=== PATIENT | female | born 1960 | race Caucasian/White ===

== ENCOUNTER 2017-12-29 06:22 | Day surgery (SDC) | payer BC ==
[2017-12-24 14:26] VITALS: BMI 28.1
[2017-12-29] MEDS ORDERED: SODIUM CHLORIDE 0.9% 1,000 ML IV ONE (06:43)
[2017-12-29 06:54] VITALS: RESP 16; TEMP 98.2
[2017-12-29] MEDS ORDERED: fentaNYL (PF) 50 MCG/ML 2 ML AMP ONE (07:26)
[2017-12-29] MEDS ORDERED: MIDAZOLAM 2 MG/2 ML VIAL ONE (07:26)
[2017-12-29] MEDS ORDERED: BENZOCAINE SPRAY 1 CAN MUCOUS MEM ONE ×2 (07:40→07:52)
[2017-12-29] MEDS: fentaNYL (PF) 50 MCG/ML 2 ML AMP IV ONE ×2 (07:54→07:57)
[2017-12-29] MEDS ORDERED: MIDAZOLAM 2 MG/2 ML VIAL IV ONE (07:54)
[2017-12-29] MEDS: MIDAZOLAM 2 MG/2 ML VIAL IV ONE ×2 (07:57→08:00)
[2017-12-29 08:54] VITALS: PULSE 66
--- NOTE | 2017-12-29 09:07 | ECHOT ---
TRANSESOPHAGEAL ECHOCARDIOGRAM DATE OF SERVICE: 12/29/2017 PERFORMING PHYSICIAN: Sarmad Johns MD, Placement Manager. PROCEDURE PERFORMED: Transesophageal echocardiogram. INDICATION: This is a pleasant 57-year-old female patient who suffered from an episode of TIA recently. The transesophageal echocardiogram is to rule out any cardiac source of embolization. COMPLICATION: None. LEVEL OF SEDATION: Moderate with a sedation length of about 15 minutes. PROCEDURE DESCRIPTION: After obtaining an informed consent, explaining the procedure, benefits, risks, complications and alternatives, the patient was brought to the transesophageal echocardiogram suite. A pulse oximetry and heart rate monitors were attached to the patient prior to the procedure. The patient's throat was sprayed using lidocaine locally. Following that, the patient was turned into left lateral position. A bite guard was placed and the patient was then sedated with the above doses of Versed and fentanyl in divided doses. Following that, the transesophageal echocardiogram probe was advanced through the bite guard into the mid esophagus where 2-D echocardiogram images as well as color Doppler images of various cardiac structures were obtained. We evaluated the interatrial septum using 2-D echocardiogram, color Doppler, and contrast study. The procedure was completed. There were no complications. FINDINGS: The left ventricular dimension and systolic function appeared to be within normal limits. The ejection fraction appeared to be with in the range of 60% with mild concentric LVH. The right ventricle is of normal size and function. The left atrium seems to be mildly dilated as well as the right atrium. The left atrial appendage appeared to be free from any thrombus. The interatrial septum appeared to be intact without any evidence of [id number]-tl-baso shunt seen. The aortic valve appeared to be trileaflet valve without stenosis or regurgitation. The mitral valve seems to be mildly thickened with evidence of mitral valve prolapse. The tricuspid valve and pulmonic valve appear to be within normal limits. CONCLUSION: 1. There is no evidence of cardiac source of embolization seen. 2. Normal left atrial appendage without any evidence of thrombus. 3. Intact interatrial septum without any evidence of shunt. 4. Normal left ventricular dimension and systolic function. 5. Mild biatrial enlargement. 6. Tri-leaflet aortic valve without stenosis or regurgitation. 7. Mild mitral valve prolapse with mild mitral regurgitation only. 8. Normal tricuspid valve and pulmonic valve. 9. Normal aortic root dimension. 10.No evidence of pericardial effusion. MMODL / IJN: [id number] /
[2017-12-29 09:34] VITALS: BP 116/72
== END 2017-12-29 09:34 | disposition home or self-care (01) ==
LOC: CATHCVL 06:22
PROVIDERS: ATTEND Internal Medicine Interventional Cardiology
DX: I34.1 Nonrheumatic mitral (valve) prolapse (principal); I34.0 Nonrheumatic mitral (valve) insufficiency; I51.7 Cardiomegaly; G45.0 Vertebro-basilar artery syndrome; Z86.73 Personal history of transient ischemic attack (TIA), and cerebral infarction without residual deficits; Z82.49 Family history of ischemic heart disease and other diseases of the circulatory system; E78.5 Hyperlipidemia, unspecified; Z79.82 Long term (current) use of aspirin; Z79.51 Long term (current) use of inhaled steroids; Z79.899 Other long term (current) drug therapy; Z88.6 Allergy status to analgesic agent; Z88.5 Allergy status to narcotic agent
CPT/HCPCS: 93312; 93320; 93325; J2250; J3010

== ENCOUNTER → 2018-11-29 | Outpatient (CLI) | payer OTHER ==
--- NOTE | 2018-11-29 16:08 | MR ---
EXAMINATION TYPE: MR knee RT wo con DATE OF EXAM: 11/29/2018 COMPARISON: None HISTORY: 58-year-old female internal derangement of right knee, right knee pain x 4 years TECHNIQUE: Multiplanar, multisequence imaging of the right knee is performed without IV contrast. FINDINGS: ACL, PCL, MCL, and LCL complex appear intact. Some fluid extending along the popliteus myotendinous j unction likely communicating with the knee joint. There is some degenerative signal near the anterior root of the lateral meniscus. An adjacent 8 mm pa rameniscal cyst suggesting underlying small tear. Moderate irregular cartilage loss along the mid morteza ghtbearing to mid peripheral lateral compartment with marginal spurring. There is degenerative signal throughout the medial meniscus without discrete meniscal tear. There is severe irregular cartilage loss especially along the anterior aspect of the medial compartment with b one-on-bone articulation, subchondral marrow signal changes, and marginal spurring. Mild extrusion of the medial meniscal body. Focal 2 mm chondral defect centrally along the lateral patellar facet with moderate irregular cartila ge loss along the medial trochlear facet and medial trochlea. There is a 4.8 x 1.2 x 1.1 cm loose body in the suprapatellar pouch with small knee joint effusion. T race early Barbosa's cyst formation. 1.6 cm ganglion at the origin of the lateral head gastrocnemius. Extensor mechanism is intact with p rominent intermediate signal of the proximal patellar tendon. Normal popliteal artery anatomy. Mild diffuse muscular atrophy. No suspicious bone marrow replacement . IMPRESSION: 1. Moderate to severe degenerative change localized to the anterior aspect of the medial compartment with full-thickness cartilage loss here. Degenerative signal throughout the medial meniscus without d iscrete medial meniscal tear. 2. Moderate focal cartilage irregularity along the mid weightbearing and mid peripheral aspect of the lateral compartment. An 8 mm parameniscal cyst anteriorly suggests a small tear near the anterior ro ot of the lateral meniscus. 3. Additional mild overall patellofemoral compartmental osteoarthrosis. 4. Small knee joint effusion with a 5 mm loose body in the suprapatellar pouch. 5. No cruciate/collateral ligament tear.
== END | disposition home or self-care (01) ==
LOC: RADMRIMAIN 09:37
PROVIDERS: ATTEND Family Medicine
DX: M17.11 Unilateral primary osteoarthritis, right knee (principal); M23.041 Cystic meniscus, anterior horn of lateral meniscus, right knee; M23.41 Loose body in knee, right knee

== ENCOUNTER → 2018-12-22 | Outpatient (CLI) | payer OTHER ==
--- NOTE | 2018-12-22 09:35 | US ---
EXAMINATION TYPE: US kidneys/renal and bladder DATE OF EXAM: 12/22/2018 COMPARISON: NONE CLINICAL HISTORY: M54.5 Low Back Pain. abnormal labs EXAM MEASUREMENTS: Right Kidney: 8.9 x 3.9 x 4.5 cm Left Kidney: 9.3 x 3.9 x 4.5 cm Right Kidney: No hydronephrosis or masses seen, cortical thinning Left Kidney: No hydronephrosis or masses seen, cortical thinning Bladder: distended, wnl Bilateral Jets seen There is no evidence for hydronephrosis at this point in time. No nephrolithiasis is seen. No hilary s are identified. The urinary bladder is anechoic. Bilateral ureteral jets are seen. IMPRESSION: Cortical thinning otherwise unremarkable study.
== END | disposition home or self-care (01) ==
LOC: RADUSWWP 09:00
PROVIDERS: ATTEND Family Medicine
DX: N28.89 Other specified disorders of kidney and ureter (principal); M54.5 Low back pain
CPT/HCPCS: 76770

== ENCOUNTER 2019-01-01 16:19 | Emergency (ER) | payer OTHER ==
[2019-01-01] MEDS ORDERED: SODIUM CHLORIDE 0.9% 1,000 ML IV STA (16:39)
--- NOTE | 2019-01-01 16:52 | ED ---
Abdominal Pain HPI - General Chief Complaint: Abdominal Pain Stated Complaint: chest & abdominal pain Time Seen by Provider: 01/01/19 16:39 Source: patient, RN notes reviewed, old records reviewed Mode of arrival: ambulatory Limitations: no limitations - History of Present Illness Initial Comments: This is a 4-year-old female the ER for evaluation. Patient resents today with evaluation of the epigastric chest pain abdominal pain that felt sharp and s hooting that happened 4 times prior to arrival. Patient is no medical history has history of stroke, no energy, no high blood pressure across to diabetes, no modifying factors for symptoms. Patient currently symptom back. No recent travel history no sick contacts. No recent waking or weight loss. No prior history of similar complaints. No surgical history MD Complaint: abdominal pain, other (Substernal epigastric pain) -: minutes(s) Location: periumbilical, epigastric Radiation: epigastric Migration to: no migration Severity: mild Severity scale (1-10): 3 Quality: aching Consistency: intermittent, now resolved Improves With: nothing Worsens With: nothing Associated Symptoms: denies other symptoms - Related Data Home Medications Medication Instructions Recorded Confirmed Levothyroxine Sodium [Synthroid] 75 mg PO DAILY 12/23/15 01/01/19 Solifenacin Succinate [Vesicare] 10 mg PO DAILY 12/23/15 01/01/19 Aspirin EC [Ecotrin Low Dose] 81 mg PO BID 12/24/17 01/01/19 Pravastatin Sodium [Pravachol] 40 mg PO HS 01/01/19 01/01/19 Allergies Allergy/AdvReac Type Severity Reaction Status Date / Time codeine Allergy Hallucinati Verified 01/01/19 16:53 ons propoxyphene napsylate Allergy Itching Verified 01/01/19 16:53 [From Darvocet-N] Review of Systems ROS Statement: Those systems with pertinent positive or pertinent negative responses have been documented in the HPI. ROS Other: All systems not noted in ROS Statement are negative. Past Medical History Past Medical History: Asthma, CVA/TIA, GERD/Reflux, Hyperlipidemia, Thyroid Disorder Additional Past Medical History / Comment(s): OVERACTIVE BLADDER. 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 COLONOSCOPY Past Anesthesia/Blood Transfusion Reactions: No Reported Reaction Past Psychological History: No Psychological Hx Reported Smoking Status: Never smoker Past Alcohol Use History: None Reported Past Drug Use History: None Reported - Past Family History Mother Family Medical History: Congestive Heart Failure (CHF) Father Additional Family Medical History / Comment(s): [employer] General Exam Limitations: no limitations General appearance: alert, in no apparent distress Head exam: Present: atraumatic, normocephalic, normal inspection Eye exam: Present: normal appearance, PERRL, EOMI. Absent: scleral icterus, co njunctival injection, periorbital swelling ENT exam: Present: normal exam, mucous membranes moist Neck exam: Present: normal inspection. Absent: tenderness, meningismus, lymphadenopathy Respiratory exam: Present: normal lung sounds bilaterally. Absent: respiratory distress, wheezes, rales, rhonchi, stridor Cardiovascular Exam: Present: regular rate, normal rhythm, normal heart sounds. Absent: systolic murmur, diastolic murmur, rubs, gallop, clicks GI/Abdominal exam: Present: soft, normal bowel sounds. Absent: distended, tenderness, guarding, rebound, rigid Extremities exam: Present: normal inspection, full ROM, normal capillary refill. Absent: tenderness, pedal edema, joint swelling, calf tenderness Back exam: Present: normal inspection Neurological exam: Present: alert, oriented X3, CN II-XII intact Psychiatric exam: Present: normal affect, normal mood Skin exam: Present: warm, dry, intact, normal color. Absent: rash Course Vital Signs 01/01/19 01/01/19 16:22 18:22 Temperature 98.1 F Pulse Rate 91 96 Respiratory 16 16 Rate Blood Pressure 148/60 123/83 O2 Sat by Pulse 99 97 Oximetry - Reevaluation(s) Reevaluation #1: 01/01/19 16:52 Medical record reviewed Reevaluation #2: 01/01/19 19:29 Symptoms remain resolved, patient has no recurrent symptoms Reevaluation #3: 01/01/19 19:29 Patient does admit to finding of urinary tract infection as of late Medical Decision Making - Medical Decision Making 58 female the ER for evaluation, patient's presented today for evaluation regards to nonspecific abdominal pain. Shock-type pain to her sternum. No prior history of similar complaint happened 3 times prior to arrival. No specific medical history. No fevers. No current chest pain or abdominal pain. CT labwork are normal, UTI we'll treat UTI discharge home - Lab Data Result diagrams: 01/01/19 17:00 01/01/19 17:00 Lab Results 01/01/19 01/01/19 01/01/19 Range/Units 17:00 17:00 17:00 WBC 7.6 (3.8-10.6) k/uL RBC 5.35 (3.80-5.40) m/uL Hgb 14.7 (11.4-16.0) gm/dL Hct 44.0 (34.0-46.0) % MCV 82.3 (80.0-100.0) fL MCH 27.5 (25.0-35.0) pg MCHC 33.4 (31.0-37.0) g/dL RDW 13.6 (11.5-15.5) % Plt Count 252 (150-450) k/uL Neutrophils % 75 % Lymphocytes % 17 % Monocytes % 5 % Eosinophils % 1 % Basophils % 1 % Neutrophils # 5.7 (1.3-7.7) k/uL Lymphocytes # 1.3 (1.0-4.8) k/uL Monocytes # 0.4 (0-1.0) k/uL Eosinophils # 0.1 (0-0.7) k/uL Basophils # 0.0 (0-0.2) k/uL Sodium 142 (137-145) mmol/L Potassium 4.0 (3.5-5.1) mmol/L Chloride 107 (98-107) mmol/L Carbon Dioxide 20 L (22-30) mmol/L Anion Gap 15 mmol/L BUN 7 (7-17) mg/dL Creatinine 0.78 (0.52-1.04) mg/dL Est GFR (CKD-EPI)AfAm >90 (>60 ml/min/1.73 sqM) Est GFR (CKD-EPI)NonAf 83 (>60 ml/min/1.73 sqM) Glucose 125 H (74-99) mg/dL Plasma Lactic Acid Linus 3.2 H* (0.7-2.0) mmol/L Calcium 10.0 (8.4-10.2) mg/dL Total Bilirubin 0.3 (0.2-1.3) mg/dL AST 25 (14-36) U/L ALT 25 (9-52) U/L Alkaline Phosphatase 91 (38-126) U/L Creatine Kinase 48 (30-135) U/L Troponin I (0.000-0.034) ng/mL Total Protein 7.6 (6.3-8.2) g/dL Albumin 4.8 (3.5-5.0) g/dL Amylase 39 (30-110) U/L Lipase 42 (23-300) U/L Urine Color Urine Appearance (Clear) Urine pH (5.0-8.0) Ur Specific [place] (1.001-1.035) Urine Protein (Negative) Urine Glucose (UA) (Negative) Urine Ketones (Negative) Urine Blood (Negative) Urine Nitrite (Negative) Urine Bilirubin (Negative) Urine Urobilinogen (<2.0) mg/dL Ur Leukocyte Esterase (Negative) Urine RBC (0-5) /hpf Urine WBC (0-5) /hpf Ur Squamous Epith Cells (0-4) /hpf Urine Mucus (None) /hpf 01/01/19 01/01/19 Range/Units 17:00 17:05 WBC (3.8-10.6) k/uL RBC (3.80-5.40) m/uL Hgb (11.4-16.0) gm/dL Hct (34.0-46.0) % MCV (80.0-100.0) fL MCH (25.0-35.0) pg MCHC (31.0-37.0) g/dL RDW (11.5-15.5) % Plt Count (150-450) k/uL Neutrophils % % Lymphocytes % % Monocytes % % Eosinophils % % Basophils % % Neutrophils # (1.3-7.7) k/uL Lymphocytes # (1.0-4.8) k/uL Monocytes # (0-1.0) k/uL Eosinophils # (0-0.7) k/uL Basophils # (0-0.2) k/uL Sodium (137-145) mmol/L Potassium (3.5-5.1) mmol/L Chloride (98-107) mmol/L Carbon Dioxide (22-30) mmol/L Anion Gap mmol/L BUN (7-17) mg/dL Creatinine (0.52-1.04) mg/dL Est GFR (CKD-EPI)AfAm (>60 ml/min/1.73 sqM) Est GFR (CKD-EPI)NonAf (>60 ml/min/1.73 sqM) Glucose (74-99) mg/dL Plasma Lactic Acid Linus (0.7-2.0) mmol/L Calcium (8.4-10.2) mg/dL Total Bilirubin (0.2-1.3) mg/dL AST (14-36) U/L ALT (9-52) U/L Alkaline Phosphatase (38-126) U/L Creatine Kinase (30-135) U/L Troponin I <0.012 (0.000-0.034) ng/mL Total Protein (6.3-8.2) g/dL Albumin (3.5-5.0) g/dL Amylase (30-110) U/L Lipase (23-300) U/L Urine Color Yellow Urine Appearance Clear (Clear) Urine pH 6.0 (5.0-8.0) Ur Specific [place] 1.006 (1.001-1.035) Urine Protein Negative (Negative) Urine Glucose (UA) Negative (Negative) Urine Ketones Negative (Negative) Urine Blood Negative (Negative) Urine Nitrite Negative (Negative) Urine Bilirubin Negative (Negative) Urine Urobilinogen <2.0 (<2.0) mg/dL Ur Leukocyte Esterase Large H (Negative) Urine RBC 1 (0-5) /hpf Urine WBC 33 H (0-5) /hpf Ur Squamous Epith Cells 1 (0-4) /hpf Urine Mucus Rare H (None) /hpf - Radiology Data Radiology results: report reviewed (CT brain, CT chest abdomen and pelvis negative for acute disease), image reviewed Disposition Clinical Impression: Abdominal pain, UTI (urinary tract infection), Atypical chest pain Disposition: HOME SELF-CARE Condition: Good Instructions (If sedation given, give patient instructions): Urinary Tract Infection in Women (ED) Is patient prescribed a controlled substance at d/c from ED?: No Referrals: Gabby Schreiber MD [Primary Care Provider] - 1-2 days
--- NOTE | 2019-01-01 17:41 | CT ---
EXAMINATION TYPE: CT brain wo con DATE OF EXAM: 01/01/2019 COMPARISON: None HISTORY: Hypertension, Abdominal and chest pain CT DLP: 1074.4 mGycm Automated exposure control for dose reduction was used. FINDINGS: There is an old lacunar infarct that is CSF attenuated involving the internal capsule and thalamus. N o acute intracranial hemorrhage, midline shift or mass effect is seen. Pool-white matter interface is maintained. No suspicious extra-axial fluid collection. No hydrocephalus. Calvarium is intact. Paran qamar sinuses and mastoid air cells are well aerated. Orbits are grossly symmetric. IMPRESSION: NO ACUTE INTRACRANIAL PROCESS. 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
--- NOTE | 2019-01-01 17:47 | CT ---
EXAMINATION TYPE: CT angio chest DATE OF EXAM: 01/01/2019 COMPARISON: NONE HISTORY: Hypertension, Abdominal and chest pain CT DLP: 327.5 mGycm. Automated Exposure Control for Dose Reduction was Utilized. CONTRAST: CTA scan of the thorax is performed with IV Contrast, patient injected with 100 mL of Isovue 370, pul monary embolism protocol. MIP Images are created on CT scanner and reviewed. FINDINGS: LUNGS: There is no focal consolidation, pleural effusion or pneumothorax. There are bilateral pulmona ry nodules. Within the left lower lobe on series 406 image 91 there is a 1.0 cm noncalcified solid pu lmonary nodule. Along the right minor fissure there are 3 solid pulmonary nodules measuring 9 mm, 3 m m and 6 mm. These could represent intrafissural lymph nodes. Strand-like bibasilar atelectasis is pre sent The tracheobronchial tree is patent. MEDIASTINUM: There is satisfactory enhancement of the pulmonary artery and its branches, there is no CT evidence for pulmonary embolism. There are no greater than 1 cm hilar or mediastinal lymph nodes. Trace pericardial effusion is present. No cardiomegaly. No evidence of thoracic aortic aneurysm or d issection is seen. No significant coronary artery calcifications. OTHER: Left lobe of the thyroid is either surgically absent or significantly atrophic. Degenerative c hanges of the spine are present. No acute osseous pathology is seen visualized portions of the abdome n are discussed on the CT abdomen and pelvis dictation of the same date. IMPRESSION: 1. No evidence of pulmonary embolus. 2. Bilateral pulmonary nodules measuring up to 1 cm on the left. For further workup of a 1 cm pulmona ry nodule PET scan could be considered. 3. Minimal bibasilar subsegmental atelectasis without focal consolidation to suggest pneumonia.
[2019-01-01 17:54] LABS: Basophils % (A) 1 %; Eosinophils # (A) 0.1 k/uL (0-0.7); Eosinophils % (A) 1 %; HGB 14.7 gm/dL (11.4-16.0); Lymphocytes # (A) 1.3 k/uL (1.0-4.8); Lymphocytes % (A) 17 %; MCH 27.5 pg (25.0-35.0); MCHC 33.4 g/dL (31.0-37.0); MCV 82.3 fL (80.0-100.0); Mean Platelet Volume 7.5; Monocytes # (A) 0.4 k/uL (0-1.0); Monocytes % (A) 5 %; Neutrophils # (A) 5.7 k/uL (1.3-7.7); Neutrophils % (A) 75 %; Platelet Count 252 k/uL (150-450); RBC 5.35 m/uL (3.80-5.40); RDW 13.6 % (11.5-15.5); WBC 7.6 k/uL (3.8-10.6)
--- NOTE | 2019-01-01 17:59 | CT ---
EXAMINATION TYPE: CT abdomen pelvis w con DATE OF EXAM: 01/01/2019 HISTORY: Hypertension, Abdominal and chest pain CT DLP: 448.2mGycm Automated Exposure Control for Dose Reduction was Utilized. CONTRAST: CT scan of the abdomen and pelvis is performed with IV Contrast, patient injected with 100 mL of Isov ue 370. COMPARISON: CT chest of the same date. FINDINGS: LUNG BASES: Minimal bibasilar subsegmental atelectasis. The visualized portions of the lungs are desc ribed in the CT chest of the same date LIVER/GB: There is very slight decreased attenuation of the hepatic parenchyma in comparison to the s plenic parenchyma however this does not yet meet criteria for hepatic steatosis. Gallbladder surgical ly absent. PANCREAS: No significant abnormality is seen. SPLEEN: No significant abnormality is seen. There is a small splenule adjacent to the sle[place] spleen ADRENALS: No significant abnormality is seen. KIDNEYS: Too small to accurately characterize bilateral hypoattenuated renal lesions are seen. No hyd ronephrosis nor nephrolithiasis. BOWEL: The appendix is air-filled and within normal limits. Very few sigmoid diverticula are seen wit hout pericolonic fat stranding. No dilated large or small bowel is present. UTERUS/ADNEXA: Calcifications are seen in the left adnexa that could relate to a teratoma or more lik magui phleboliths within the distal gonadal vein. Uterus is suboptimally evaluated on CT. LYMPH NODES: No greater than 1cm abdominal or pelvic lymph nodes are appreciated. OSSEOUS STRUCTURES: Moderate multilevel degenerative changes of the spine are seen mild degenerative changes of the femoral acetabular joints are present. OTHER: Moderate atherosclerosis is seen of the abdominal aorta and its branches. There is a 4 mm fat filled umbilical hernia. IMPRESSION: No significant acute finding is seen to account for patient's abdominal pain. Sigmoid div erticulosis without evidence of acute diverticulitis is present.
[2019-01-01 18:05] LABS: ALT 25 U/L (9-52); AST 25 U/L (14-36); Albumin 4.8 g/dL (3.5-5.0); Alkaline Phosphatase 91 U/L (38-126); Amylase 39 U/L (30-110); Anion Gap 15 mmol/L; Blood Urea Nitrogen 7 mg/dL (7-17); Carbon Dioxide 20 mmol/L (22-30); Chloride 107 mmol/L (98-107); Creatine Kinase 48 U/L (30-135); Glucose 125 mg/dL (74-99); Lipase 42 U/L (23-300); Sodium 142 mmol/L (137-145); Total Bilirubin 0.3 mg/dL (0.2-1.3); Total Protein 7.6 g/dL (6.3-8.2)
[2019-01-01 18:07] LABS: Appearance,Urine Clear (Clear); Bilirubin,Urine Negative (Negative); Blood,Urine Negative (Negative); Color,Urine Yellow; Glucose,Urine (UA) Negative (Negative); Ketones,Urine Negative (Negative); Leukocyte Esterase,Urine Large (Negative); Mucus,Urine Rare /hpf; Nitrite,Urine Negative (Negative); Protein,Urine Negative (Negative); RBC,Urine 1 /hpf (0-5); Specific Gravity,Urine 1.006 (1.001-1.035); Squamous Epithelial Cell,Urine 1 /hpf (0-4); Urobilinogen,Urine <2.0 mg/dL (<2.0); WBC,Urine 33 /hpf (0-5)
[2019-01-01] MEDS ORDERED: CEFTRIAXONE IVPB STA (19:04)
[2019-01-01] MEDS ORDERED: SODIUM CHLORIDE 0.9% IVPB STA (19:04)
[2019-01-01 19:57] VITALS: BP 130/80; PULSE 73; RESP 18; TEMP 97.9
== END 2019-01-01 20:20 | disposition home or self-care (01) ==
LOC: EC 16:19
DX: N39.0 Urinary tract infection, site not specified (principal); R07.89 Other chest pain; R10.13 Epigastric pain; E78.5 Hyperlipidemia, unspecified; E07.9 Disorder of thyroid, unspecified; N32.81 Overactive bladder; Z82.49 Family history of ischemic heart disease and other diseases of the circulatory system; Z88.5 Allergy status to narcotic agent; Z79.82 Long term (current) use of aspirin; Z79.890 Hormone replacement therapy; Z79.899 Other long term (current) drug therapy; Z86.73 Personal history of transient ischemic attack (TIA), and cerebral infarction without residual deficits; Z87.19 Personal history of other diseases of the digestive system; Z90.49 Acquired absence of other specified parts of digestive tract
CPT/HCPCS: 99285; 96365; 96361 ×2; 36415; 93005; 80053; 82150; 82550; 83605; 83690; 84484; 85025; 81001; 87086; 70450; 71275; 74177; J0696; Q9967

== ENCOUNTER → 2019-05-10 | Outpatient (CLI) | payer OTHER ==
--- NOTE | 2019-05-10 13:11 | US ---
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 EXAM MEASUREMENTS: RIGHT: Peak Systolic Velocity (PSV) cm/sec ----- Right CCA: 67.7 ----- Right ICA: 73.4 ----- Right ECA: 65.1 ICA/CCA ratio: 1.1 RIGHT: End Diastole cm/sec ----- Right CCA: 25.0 ----- Right ICA: 34.1 ----- Right ECA: 17.1 LEFT: Peak Systolic Velocity (PSV) cm/sec ----- Left CCA: 70.1 ----- Left ICA: 83.9 ----- Left ECA: 56.7 ICA/CCA ratio: 1.2 LEFT: End Diastole cm/sec ----- Left CCA: 21.2 ----- Left ICA: 35.1 ----- Left ECA: 11.8 VERTEBRALS (direction of flow): Right Vertebral: Antegrade Left Vertebral: Antegrade Rhythm: Normal No elevated velocities, mild plaque. IMPRESSION: Mild degree of grayscale atheromatous plaquing with no sonographically evident hemodynam ically significant stenosis within either visualized carotid arterial system. Criteria for Assigning % of Stenosis / Diameter reduction (Estimation based on the indirect measurements of the internal carotid artery velocities (ICA PSV). 1. Normal (no stenosis)=ICA PSV < 125 cm/s: ratio < 2.0: ICA EDV<40 cm/s. 2. Less than 50% stenosis=ICA PSV < 125 cm/s: ratio < 2.0: ICA EDV<40 cm/s. 3. 50 to 69% stenosis=ICA PSV of 125 to 230 cm/s: ration 2.0 ? 4.0: ICA EDV 40-100 cm/s. 4. Greater than 70% stenosis to near occlusion= ICA PSV > 230 cm/s: ratio > 4.0: ICA EDV > 100 cm/s. 5. Near occlusion= ICA PSV velocities may be low or undetectable: variable ratio and ICA EDV. 6. Total occlusion=unable to detect flow.
== END ==
LOC: RADUSWWP 12:05
PROVIDERS: ATTEND Family Medicine
DX: I65.23 Occlusion and stenosis of bilateral carotid arteries (principal)
CPT/HCPCS: 93880

== ENCOUNTER → 2021-12-24 | Outpatient (CLI) | payer OTHER ==
--- NOTE | 2021-12-25 08:25 | MM ---
Reason for exam: screening (asymptomatic). Last mammogram was performed 6 years and 1 month ago. History: Patient is postmenopausal. Physical Findings: A clinical breast exam by your physician is recommended on an annual basis and results should be correlated with mammographic findings. MG Screening Mammo w CAD Bilateral CC and MLO view(s) were taken. Prior study comparison: December 03, 2015, bilateral MG screening mammo w CAD. August 10, 2013, mammogram, performed at [facility]. There are scattered fibroglandular densities. There is no discrete abnormality. ASSESSMENT: Negative, BI-RAD 1 RECOMMENDATION: Routine screening mammogram of both breasts in 1 year.
== END | disposition home or self-care (01) ==
LOC: RADMAMWWP 07:26
PROVIDERS: ATTEND Family Medicine
DX: Z12.31 Encounter for screening mammogram for malignant neoplasm of breast (principal); Z78.0 Asymptomatic menopausal state
CPT/HCPCS: 77067

== ENCOUNTER → 2022-05-20 | Outpatient (CLI) | payer OTHER ==
--- NOTE | 2022-05-20 08:14 | CT ---
EXAMINATION TYPE: CT chest w con CT DLP: 208.3 mGycm, Automated exposure control for dose reduction was used. DATE OF EXAM: 05/20/2022 7:44 AM COMPARISON: 01/01/2019 CLINICAL INDICATION:Female, 61 years old with history of R91.1 SPN;, Solitary pulmonary nodule TECHNIQUE: Multiple axial images were obtained through the chest. Sagittal and coronal reformats were created for review. Contrast used:70 mL of Isovue 300 with IV Contrast, none. Oral contrast used: none. FINDINGS: LUNGS/ PLEURA: No focal consolidation, pneumothorax or pleural effusion. Scattered pulmonary nodules are identified. Examples include: Right lower lobe pulmonary nodule measuring 5 mm is unchanged from 2019. Left lower lobe pulmonary nodule measuring average 11 mm is unchanged from 2019. There are 3 minor fissure intrafissural lymph nodes on series 3 image 30 and 32. AIRWAY: Patent and unremarkable. HEART: Size within normal limits. Mild coronary artery atherosclerosis MEDIASTINUM: No gross evidence of adenopathy. VASCULATURE: No aortic aneurysm. MUSCULOSKELETAL: No acute osseous abnormalities SOFT TISSUES/LYMPH NODES: Unremarkable. LOWER NECK: No significant findings. UPPER ABDOMEN: The gallbladder is surgically absent. IMPRESSION: Stable left lower lobe average 11 mm and right lower lobe 5 mm pulmonary nodules dating back to 2019.
== END | disposition home or self-care (01) ==
LOC: RADCTMAIN 07:09
PROVIDERS: ATTEND Family Medicine
DX: R91.8 Other nonspecific abnormal finding of lung field (principal)
CPT/HCPCS: 71260; Q9967

== ENCOUNTER 2022-08-31 11:04 | Emergency (ER) | payer OTHER ==
[2022-08-31] MEDS ORDERED: SODIUM CHLORIDE 0.9% 1,000 ML IV ONE (11:28)
--- NOTE | 2022-08-31 11:57 | ED ---
General Adult HPI - General Chief complaint: Arrhythmia/Palpitations Stated complaint: Heart racing Time Seen by Provider: 08/31/22 11:10 Source: patient Mode of arrival: ambulatory Limitations: no limitations - History of Present Illness Initial comments: Patient is a 62-year-old female presenting with chief complaint of "I just don't feel right". Patient states that she "feels like she is in a fog". She has some minor confusion, at bedside states that patient had a stroke 5 years ago and her short-term memory has been severely impaired since then. Patient has had 2 episodes of dizziness. She also states that her fitness watch indicated that her heart rate was reaching up to 120 bpm. She denies any chest pain or shortness of breath. No weakness, numbness, tingling. No abdominal pain, nausea, vomiting. No headache, vision or hearing changes, neck pain or stiffness. - Related Data Home Medications Medication Instructions Recorded Confirmed Levothyroxine Sodium [Synthroid] 75 mg PO DAILY 12/23/15 01/01/19 Solifenacin Succinate [Vesicare] 10 mg PO DAILY 12/23/15 01/01/19 Aspirin EC [Ecotrin Low Dose] 81 mg PO BID 12/24/17 01/01/19 Pravastatin Sodium [Pravachol] 40 mg PO HS 01/01/19 01/01/19 Previous Rx's Medication Instructions Recorded Nitrofurantoin Monohyd/M-Cryst 100 mg PO Q12HR #10 cap 01/01/19 [Macrobid] Meclizine [Antivert] 25 mg PO DAILY PRN #10 tab 08/31/22 Allergies Allergy/AdvReac Type Severity Reaction Status Date / Time codeine Allergy Hallucinati Verified 01/01/19 16:53 ons propoxyphene napsylate Allergy Itching Verified 01/01/19 16:53 [From Judson-N] Review of Systems ROS Statement: Those systems with pertinent positive or pertinent negative responses have been documented in the HPI. ROS Other: All systems not noted in ROS Statement are negative. Past Medical History Past Medical History: Asthma, CVA/TIA, GERD/Reflux, Hyperlipidemia, Thyroid Disorder Additional Past Medical History / Comment(s): OVERACTIVE BLADDER. CVA-12/02/17- SOME MILD LT SIDED WEAKNESS History of Any Multi-Drug Resistant Organisms: None Reported Past Surgical History: Section, Cholecystectomy Additional Past Surgical History / Comment(s): Thyroid surgery. COLONOSCOPY Past Anesthesia/Blood Transfusion Reactions: No Reported Reaction Past Psychological History: No Psychological Hx Reported Past Alcohol Use History: None Reported Past Drug Use History: None Reported - Past Family History Mother Family Medical History: Congestive Heart Failure (CHF) Father Additional Family Medical History / Comment(s): Alheizeimers General Exam Limitations: no limitations General appearance: alert, in no apparent distress Head exam: Present: atraumatic, normocephalic, normal inspection Eye exam: Present: normal appearance, PERRL, EOMI. Absent: scleral icterus, conjunctival injection, periorbital swelling Pupils: Present: normal accommodation Neck exam: Present: normal inspection, full ROM Respiratory exam: Present: normal lung sounds bilaterally. Absent: respiratory distress, wheezes, rales, rhonchi, stridor Cardiovascular Exam: Present: regular rate, normal rhythm, normal heart sounds. Absent: systolic murmur, diastolic murmur, rubs, gallop, clicks Extremities exam: Present: normal inspection, full ROM Neurological exam: Present: alert, oriented X3, CN II-XII intact Expanded Patient oriented to: Present: person, place, time Speech: Present: fluid speech Cranial nerves: EOM's Intact: Normal, Tongue Deviation: Normal, Facial Sensation: Normal Sensory exam: Upper Extremity Light Touch: Normal, Lower Extremity Light Touch: Normal Motor strength exam: RUE: 5, LUE: 5, RLE: 5, LLE: 5 Eye Response: (4) open spontaneously Motor Response: (6) obeys commands Verbal Response: (5) oriented Pratik Total: 15 Psychiatric exam: Present: normal affect, normal mood Skin exam: Present: warm, dry, intact, normal color. Absent: rash Course Vital Signs 08/31/22 08/31/22 08/31/22 11:05 12:00 12:53 Temperature 97.8 F 98.7 F Pulse Rate 73 68 67 Respiratory 20 16 16 Rate Blood Pressure 142/75 124/77 123/72 O2 Sat by Pulse 98 99 99 Oximetry EKG Findings - EKG Comments: EKG Findings:: Sinus rhythm. Ventricular rate 67. WI interval 143. QRS 94. QT 410. QTc 425. No ST deviation. Medical Decision Making - Medical Decision Making Patient is a 62-year-old female presenting with chief complaint of "I just don't feel right". Admits to brief sensation of heart racing and some dizziness. Patient has history of BPPV. On examination NIH score is 0. Heart and lungs are clear to auscultation, no focal neurological deficits. CBC shows no leuko cytosis or anemia. CMP is unremarkable. Troponin is less than 0.012 and EKG shows no ischemic changes. TSH is WNL. Urine shows 2 wbc's, sent for culture. CT of the brain without contrast shows no acute bleed or mass effect. There is a remote lacunar infarct in the right internal capsule, patient had previous stroke. Chest x-ray shows no acute process. On reassessment patient reports improvement in symptoms after meclizine, may be exacerbation of BPPV. She is provided a prescription for meclizine. States that she has an appointment with the neurologist that is upcoming. Follow-up with PCP. Report back to ER with any new or worsening symptoms. Discussed return parameters and answered all questions. Patient conveyed verbal understanding and agreed to the plan. I discussed this case in detail with my attending Dr. Rosenthal - Lab Data Result diagrams: 08/31/22 11:51 08/31/22 11:51 Lab Results 08/31/22 08/31/22 08/31/22 Range/Units 11:51 11:51 11:51 WBC 8.5 (3.8-10.6) k/uL RBC 5.14 (3.80-5.40) m/uL Hgb 15.0 (11.4-16.0) gm/dL Hct 43.4 (34.0-46.0) % MCV 84.5 (80.0-100.0) fL MCH 29.3 (25.0-35.0) pg MCHC 34.6 (31.0-37.0) g/dL RDW 12.7 (11.5-15.5) % Plt Count 209 (150-450) k/uL MPV 9.1 Neutrophils % 83 % Lymphocytes % 11 % Monocytes % 4 % Eosinophils % 1 % Basophils % 0 % Neutrophils # 7.1 (1.3-7.7) k/uL Lymphocytes # 0.9 L (1.0-4.8) k/uL Monocytes # 0.4 (0-1.0) k/uL Eosinophils # 0.1 (0-0.7) k/uL Basophils # 0.0 (0-0.2) k/uL PT 10.6 (9.0-12.0) sec INR 1.0 (<1.2) APTT 21.3 L (22.0-30.0) sec Sodium (137-145) mmol/L Potassium (3.5-5.1) mmol/L Chloride (98-107) mmol/L Carbon Dioxide (22-30) mmol/L Anion Gap mmol/L BUN (7-17) mg/dL Creatinine (0.52-1.04) mg/dL Est GFR (CKD-EPI)AfAm (>60 ml/min/1.73 sqM) Est GFR (CKD-EPI)NonAf (>60 ml/min/1.73 sqM) Glucose (74-99) mg/dL POC Glucose (mg/dL) (70-110) mg/dL POC Glu Emergency Department Clinician ID Calcium (8.4-10.2) mg/dL Phosphorus (2.5-4.5) mg/dL Magnesium (1.6-2.3) mg/dL Total Bilirubin (0.2-1.3) mg/dL AST (14-36) U/L ALT (4-34) U/L Alkaline Phosphatase (38-126) U/L Troponin I (0.000-0.034) ng/mL Total Protein (6.3-8.2) g/dL Albumin (3.5-5.0) g/dL TSH (0.465-4.680) mIU/L Urine Color Light Yellow Urine Appearance Clear (Clear) Urine pH 6.0 (5.0-8.0) Ur Specific [place] 1.004 (1.001-1.035) Urine Protein Negative (Negative) Urine Glucose (UA) Negative (Negative) Urine Ketones Negative (Negative) Urine Blood Negative (Negative) Urine Nitrite Negative (Negative) Urine Bilirubin Negative (Negative) Urine Urobilinogen <2.0 (<2.0) mg/dL Ur Leukocyte Esterase Moderate H (Negative) Urine RBC <1 (0-5) /hpf Urine WBC 2 (0-5) /hpf 08/31/22 08/31/22 08/31/22 Range/Units 11:51 11:51 12:31 WBC (3.8-10.6) k/uL RBC (3.80-5.40) m/uL Hgb (11.4-16.0) gm/dL Hct (34.0-46.0) % MCV (80.0-100.0) fL MCH (25.0-35.0) pg MCHC (31.0-37.0) g/dL RDW (11.5-15.5) % Plt Count (150-450) k/uL MPV Neutrophils % % Lymphocytes % % Monocytes % % Eosinophils % % Basophils % % Neutrophils # (1.3-7.7) k/uL Lymphocytes # (1.0-4.8) k/uL Monocytes # (0-1.0) k/uL Eosinophils # (0-0.7) k/uL Basophils # (0-0.2) k/uL PT (9.0-12.0) sec INR (<1.2) APTT (22.0-30.0) sec Sodium 140 (137-145) mmol/L Potassium 4.6 (3.5-5.1) mmol/L Chloride 107 (98-107) mmol/L Carbon Dioxide 22 (22-30) mmol/L Anion Gap 11 mmol/L BUN 10 (7-17) mg/dL Creatinine 0.77 (0.52-1.04) mg/dL Est GFR (CKD-EPI)AfAm >90 (>60 ml/min/1.73 sqM) Est GFR (CKD-EPI)NonAf 82 (>60 ml/min/1.73 sqM) Glucose 101 H (74-99) mg/dL POC Glucose (mg/dL) 88 (70-110) mg/dL POC Glu Emergency Department Clinician ID Chelsea Nixon Calcium 9.7 (8.4-10.2) mg/dL Phosphorus 3.3 (2.5-4.5) mg/dL Magnesium 2.1 (1.6-2.3) mg/dL Total Bilirubin 0.6 (0.2-1.3) mg/dL AST 25 (14-36) U/L ALT 15 (4-34) U/L Alkaline Phosphatase 74 (38-126) U/L Troponin I <0.012 (0.000-0.034) ng/mL Total Protein 7.5 (6.3-8.2) g/dL Albumin 5.0 (3.5-5.0) g/dL TSH 0.684 (0.465-4.680) mIU/L Urine Color Urine Appearance (Clear) Urine pH (5.0-8.0) Ur Specific [place] (1.001-1.035) Urine Protein (Negative) Urine Glucose (UA) (Negative) Urine Ketones (Negative) Urine Blood (Negative) Urine Nitrite (Negative) Urine Bilirubin (Negative) Urine Urobilinogen (<2.0) mg/dL Ur Leukocyte Esterase (Negative) Urine RBC (0-5) /hpf Urine WBC (0-5) /hpf Disposition Clinical Impression: Dizziness Disposition: HOME SELF-CARE Condition: Good Instructions (If sedation given, give patient instructions): Heart Palpitations (ED), Benign Paroxysmal Positional Vertigo (ED) Additional Instructions: Follow-up with PCP. Report back to ER with any new or worsening symptoms. Take meclizine as prescribed. Prescriptions: Meclizine [Antivert] 25 mg PO DAILY PRN #10 tab PRN Reason: Vertigo Is patient prescribed a controlled substance at d/c from ED?: No Referrals: Gabby Schreiber MD [Primary Care Provider] - 1-2 days Time of Disposition: 12:51
[2022-08-31 12:09] VITALS: RESP 16
[2022-08-31 12:14] LABS: Basophils % (A) 0 %; Eosinophils # (A) 0.1 k/uL (0-0.7); Eosinophils % (A) 1 %; HCT 43.4 % (34.0-46.0); Lymphocytes # (A) 0.9 k/uL (1.0-4.8); Lymphocytes % (A) 11 %; MCH 29.3 pg (25.0-35.0); MCHC 34.6 g/dL (31.0-37.0); MCV 84.5 fL (80.0-100.0); Mean Platelet Volume 9.1; Monocytes # (A) 0.4 k/uL (0-1.0); Monocytes % (A) 4 %; Neutrophils # (A) 7.1 k/uL (1.3-7.7); Neutrophils % (A) 83 %; Platelet Count 209 k/uL (150-450); RBC 5.14 m/uL (3.80-5.40); RDW 12.7 % (11.5-15.5); WBC 8.5 k/uL (3.8-10.6)
--- NOTE | 2022-08-31 12:17 | CT ---
EXAMINATION TYPE: CT brain wo con DATE OF EXAM: 08/31/2022 COMPARISON: None HISTORY: dizzy CT DLP: 1082.4 mGycm Automated exposure control for dose reduction was used. FINDINGS: The ventricles, basal cisterns and sulci over the convexities are within normal limits and there is n o mass effect or shift of midline structures. There is a remote lacunar infarct in the genu of the internal capsule on the right. The posterior fossa is grossly normal. The intraorbital contents appear normal and symmetric. Visualized paranasal sinuses and mastoid air cells are. IMPRESSION: 1. Remote lacunar infarct in the right internal capsule. 2. No acute bleed or mass effect.
--- NOTE | 2022-08-31 12:18 | XR ---
EXAMINATION TYPE: XR chest 2V DATE OF EXAM: 08/31/2022 COMPARISON: NONE HISTORY: Dizziness TECHNIQUE: Frontal and lateral views of the chest are obtained. FINDINGS: There is no focal air space opacity, pleural effusion, or pneumothorax seen. The cardiac silhouette size is within normal limits. The osseous structures are intact. IMPRESSION: No acute cardiopulmonary process.
[2022-08-31] MEDS ORDERED: MECLIZINE 12.5 MG TAB PO STA (12:19)
[2022-08-31 12:25] LABS: ALT 15 U/L (4-34); AST 25 U/L (14-36); African American GFR (CKD) >90 (>60 ml/min/1.73 sqM); Alkaline Phosphatase 74 U/L (38-126); Anion Gap 11 mmol/L; Blood Urea Nitrogen 10 mg/dL (7-17); Calcium 9.7 mg/dL (8.4-10.2); Carbon Dioxide 22 mmol/L (22-30); Chloride 107 mmol/L (98-107); Glucose 101 mg/dL (74-99); Magnesium 2.1 mg/dL (1.6-2.3); Non-African American GFR(CKD) 82 (>60 ml/min/1.73 sqM); Phosphorus 3.3 mg/dL (2.5-4.5); Sodium 140 mmol/L (137-145); Total Bilirubin 0.6 mg/dL (0.2-1.3); Total Protein 7.5 g/dL (6.3-8.2)
[2022-08-31 12:26] LABS: Appearance,Urine Clear (Clear); Bilirubin,Urine Negative (Negative); Blood,Urine Negative (Negative); Color,Urine Light Yellow; Glucose,Urine (UA) Negative (Negative); Ketones,Urine Negative (Negative); Leukocyte Esterase,Urine Moderate (Negative); Nitrite,Urine Negative (Negative); Protein,Urine Negative (Negative); RBC,Urine <1 /hpf (0-5); Specific Gravity,Urine 1.004 (1.001-1.035); Urobilinogen,Urine <2.0 mg/dL (<2.0); WBC,Urine 2 /hpf (0-5)
[2022-08-31 12:27] LABS: Potassium 4.6 mmol/L (3.5-5.1)
[2022-08-31 12:32] LABS: Glucose,Whole Blood 88 mg/dL (70-110)
[2022-08-31 12:56] VITALS: BP 123/72; PULSE 67; TEMP 98.7
[2022-08-31 13:09] LABS: Partial Thromboplastin Time 21.3 sec (22.0-30.0); Prothrombin Time 10.6 sec (9.0-12.0)
== END 2022-08-31 13:23 | disposition home or self-care (01) ==
LOC: EC 11:04
DX: R42 Dizziness and giddiness (principal); J45.909 Unspecified asthma, uncomplicated; E07.9 Disorder of thyroid, unspecified; E78.5 Hyperlipidemia, unspecified; Z88.5 Allergy status to narcotic agent; Z91.048 Other nonmedicinal substance allergy status; Z79.890 Hormone replacement therapy; Z79.82 Long term (current) use of aspirin; Z79.899 Other long term (current) drug therapy
CPT/HCPCS: 36415; 70450; 71046; 80053; 81001; 83735; 84100; 84443; 84484; 85025; 85610; 85730; 93005; 96360; 99285

== ENCOUNTER → 2022-12-24 | Outpatient (CLI) | payer OTHER ==
--- NOTE | 2022-12-24 12:20 | XR ---
EXAMINATION TYPE: XR chest 2V DATE OF EXAM: 12/24/2022 COMPARISON: Chest x-ray August 31, 2022 HISTORY: Chronic cough since COVID In September. History of asthma. TECHNIQUE: Frontal and lateral views of the chest are obtained. FINDINGS: There is no suspicious new focal air space opacity, pleural effusion, or pneumothorax seen . The cardiac silhouette size is stable and within normal limits. Cholecystectomy clips are redemons trated. Multilevel right lateral spurring in the lower thoracic spine is redemonstrated. IMPRESSION: No acute pulmonary process. No significant change from prior x-ray.
== END | disposition home or self-care (01) ==
LOC: RADXRMAIN 11:49
PROVIDERS: ATTEND Family Medicine
DX: J45.901 Unspecified asthma with (acute) exacerbation (principal); R91.1 Solitary pulmonary nodule
CPT/HCPCS: 71046

== ENCOUNTER → 2024-11-01 | Outpatient (CLI) | payer MEDICARE | LOC: LABWHC1 10:26 | PROVIDERS: ATTEND Family Medicine | DX: J45.991 Cough variant asthma (principal) | CPT/HCPCS: 36415 ==

== ENCOUNTER → 2024-12-29 | Outpatient (CLI) | payer MEDICARE, OTHER ==
[2024-12-29 14:13] VITALS: BP 130/80; PULSE 82; RESP 18; TEMP 98.3
--- NOTE | 2024-12-29 14:50 | P.SLEEP ---
History of Present Illness DATE: 12/29/2024 CONSULTATION/NEW PATIENT EVALUATION HISTORY OF PRESENT ILLNESS/SLEEP-WAKE EVALUATION: 64-year-old lady had been e valuated in the sleep center for possible obstructive sleep apnea hypopnea syndrome. SLEEP SCHEDULE: Usually sleep schedule from 910 PM until 7:30 AM. FALLING ASLEEP: Usually no significant problems with falling asleep, although patient has TV set in bedroom. DURING SLEEP: Patient usually sleeps on the side position with loud snoring and awakenings from sleep 2 times. Positive history of dry mouth, grinding teeth, restless leg symptoms no history of hypnogogical hallucinations, sleep paralysis, or cataplexy. DURING THE DAY/WAKE STATE: Patient has problems with memory. [place] sleepiness scale is 3. Patient does not take naps. PAST MEDICAL HISTORY: Stroke in 2018 with left-sided weakness reviewed the very minimal residual deficit, memory problems, hypothyroidism. PAST SURGICAL HISTORY: Thyroid resection. MEDICATIONS: Have been reviewed, please see below. SOCIAL HISTORY: Please see below. FAMILY HISTORY: Please see below. REVIEW OF SYSTEMS: Loud snoring, multiple awakenings from sleep. No fevers. No double vision. No recent chest pain. No shortness of breath. No abdominal pain. No bleeding episodes. No blood in urine. No seizure episodes. PHYSICAL EXAMINATION: GENERAL: A pleasant patient without any distress. VITAL SIGNS: Please see below, weight 125.2, BMI 23.8. HEENT: PERRLA, EOMI. Evaluation of oropharynx showed tongue protrudes midline, low position of soft palate Mallampati 4. NECK: Supple. No JVD. Thyroid is not palpable. 14 inches in circumference. LUNGS: Clear to percussion and to auscultation. Good air exchange. No wheezing or rhonchi. HEART: S1, S2 regular. No murmurs, gallops or rubs. ABDOMEN: Soft and nontender. Bowel sounds are present. No organomegaly appreciated. EXTREMITIES: No clubbing or cyanosis. LAWN CARE WORKER: Awake, alert, and oriented x3. Cranial nerves 2 to 7 intact. There is no fasciculation or atrophy noted. ASSESSMENT: 1. Loud snoring, awakenings from sleep, extremely low position of soft palate Mallampati 4. Obstructive sleep apnea hypopnea syndrome. 2. Status post stroke in 2018 with left-sided weakness with very minimal residual left-sided weakness. 3. Memory problems. 4. Status post thyroid resection, hypothyroidism. 5 hyperlipidemia. 6 . Restless leg symptoms. PLAN: 1. Polysomnography for evaluation of patient's breathing during sleep. 2. Following plan after reading sleep study. 3. Preferable position during sleep on the side. 4. No driving if patient feels any sleepiness. Patient is aware of civil and criminal liability for unsafe driving. 5. Sleep hygiene with regular sleep time for at least 7.5-8 hours. 6. Watching weight. Thank you very much for referring this patient for consultation. Sincerely, Clint Parry MD, PhD, FAASM. Diplomat of [place] [employer], Sleep Medicine Board by [place] [employer] [place] [employer] Floor Surfacer of [facility] [place] cc: Gabby Schreiber MD Past Medical History Past Medical History: Asthma, CVA/TIA, GERD/Reflux, Hyperlipidemia, Thyroid Disorder Additional Past Medical History / Comment(s): OVERACTIVE BLADDER. CVA-12/02/17-SOME MILD LT SIDED WEAKNESS, History of Any Multi-Drug Resistant Organisms: None Reported Past Surgical History: Section, Cholecystectomy Additional Past Surgical History / Comment(s): Thyroid surgery. COLONOSCOPY, c - section X 3, Past Anesthesia/Blood Transfusion Reactions: No Reported Reaction Past Psychological History: No Psychological Hx Reported Smoking Status: Never smoker Past Alcohol Use History: Occasional Past Drug Use History: None Reported - Past Family History Mother Family Medical History: Congestive Heart Failure (CHF), Hypertension Additional Family Medical History / Comment(s): Demntia or Alzheimers Father Additional Family Medical History / Comment(s): Alheizeimers, life time smoker, Medications and Allergies Home Medications Medication Instructions Recorded Confirmed Type Levothyroxine Sodium [Synthroid] 75 mg PO DAILY 12/23/15 12/29/24 History Solifenacin Succinate [Vesicare] 10 mg PO DAILY 12/23/15 12/29/24 History Aspirin EC [Ecotrin Low Dose] 81 mg PO BID 12/24/17 01/01/19 History Nitrofurantoin Monohyd/M-Cryst 100 mg PO Q12HR #10 cap 01/01/19 Rx [Macrobid] Pravastatin Sodium [Pravachol] 40 mg PO HS 03/30/19 03/30/19 History Meclizine [Antivert] 25 mg PO DAILY PRN #10 tab 08/31/22 Rx Galantamine [Razadyne] 8 mg PO DAILY 12/29/24 12/29/24 History Memantine HCl 5 mg PO BID 12/29/24 12/29/24 History Rosuvastatin [Crestor] 40 mg PO DAILY 12/29/24 12/29/24 History Allergies Allergy/AdvReac Type Severity Reaction Status Date / Time codeine Allergy Hallucinati Verified 01/01/19 16:53 ons propoxyphene napsylate Allergy Itching Verified 01/01/19 16:53 [From JudsonElyse] Physical Exam Vitals: Vital Signs Temp Pulse Resp BP Pulse Ox 12/29/24 14:12 98.3 F 82 18 130/80 99 Intake and Output 12/28/24 12/29/24 12/29/24 22:59 06:59 14:59 Other: Weight 56.756 kg Sleep Note - Sleep Data ESS Total: 3 - Sleep Note Sleep Note: Temperature: 98.3 F Pulse Rate: 82 Respiratory Rate: 18 Blood Pressure: 130/80 SpO2: 99 Height: 5 ft 0.07 in Weight: 56.756 kg BMI: Neck Circumference: 14
== END ==
LOC: 3 N SLEEP 13:32
PROVIDERS: ATTEND Internal Medicine
DX: G47.33 Obstructive sleep apnea (adult) (pediatric) (principal); E78.5 Hyperlipidemia, unspecified; G25.81 Restless legs syndrome; E03.9 Hypothyroidism, unspecified; R54 Age-related physical debility; Z90.89 Acquired absence of other organs; Z86.73 Personal history of transient ischemic attack (TIA), and cerebral infarction without residual deficits; Z88.8 Allergy status to other drugs, medicaments and biological substances; Z88.5 Allergy status to narcotic agent
CPT/HCPCS: 99211

== ENCOUNTER 2025-01-01 19:44 | Outpatient (CLI) | payer MEDICARE, OTHER ==
--- NOTE | 2025-01-04 11:01 | P.PCN ---
Description of Procedure: POLYSOMNOGRAPHY REPORT PROCEDURE(S)/DATE(S): Polysomnography 01/01/2025 CLINICAL: Patient has been seen in the sleep center for evaluation of obstructive sleep apnea-hypopnea syndrome. Please see my consultation. Sleep study has been done for evaluation of patient breathing during the sleep. PROCEDURE: The standard montage for clinical polysomnography included the electroencephalogram, the electrooculogram, the mentalis surface electromyography and Lead II cardiography. The respiratory battery consisted of measurements of nasal/buccal air flow, pressure transducer measurements from nose, thoracic and/or abdominal effort and intercostal surface electromyography. Video monitoring has been done to check for any parasomnia events. Nocturnal oxyhemoglobin saturations were obtained by finger oximetry. Step-zapata titration with positive airway pressure was utilized to control the respiratory events, if necessary. RESULTS: During the diagnostic sleep study sleep efficiency was normal 89.6%. Latency to sleep onset was 14.0 min. Sleep architecture showed stage NI was inc reased to 12.7%, Delta sleep was absent 0%, REM sleep was short 3.1%. Respiratory channel showed 7 obstructive apneas, 1 mixed apneas, 0 central apneas, 39 hypopneas with lowest oxygen level 85%. Total apnea hypopnea index was 8.3. Heart rate was in the range between 46 and 115, average 65. EMG showed 2.9 periodic limb movements per hour. IMPRESSIONS: 1. Obstructive sleep apnea hypopnea syndrome. 2. No significant periodic limb movements have been documented. 3. Status post stroke with minimal residual left-sided weakness. Please see other impressions from consultation PLAN: 1. The patient will have AutoPAP treatment for correction of respiratory abnormalities during the sleep. 2. I will see patient for follow-up visit to evaluate clinical response on treatment, compliance with treatment and [place] adjustments related to mask fitting pressure and humidification. 3. Sleep hygiene with regular time in bed for at least 7-1/2 hours. 4. No driving if feeling sleepiness. Thank you very much for allowing me to participate in the management of your patient. Sincerely, Clint Parry MD, PhD, FAASM. Diplomat of [place] [employer], Sleep Medicine Board by [place] [employer] Intensivist of [facility] [place] cc: Gabby Schreiber MD
== END 2025-01-02 06:05 | disposition home or self-care (01) ==
LOC: 3 N SLEEP 19:44
PROVIDERS: ATTEND Internal Medicine
DX: G47.33 Obstructive sleep apnea (adult) (pediatric) (principal); Z86.73 Personal history of transient ischemic attack (TIA), and cerebral infarction without residual deficits; Z88.5 Allergy status to narcotic agent
CPT/HCPCS: 95810

== ENCOUNTER → 2025-05-04 | Outpatient (CLI) | payer MEDICARE, OTHER ==
[2025-05-04 14:38] VITALS: BP 108/69; PULSE 82; RESP 16; TEMP 98
--- NOTE | 2025-05-04 15:25 | P.PROGSL ---
Subjective DATE: 05/04/2025 FOLLOW UP VISIT. Patient with obstructive sleep apnea hypopnea syndrome return to sleep center for follow-up visit. Recently patient had sleep study which documented obstructive sleep apnea hypopnea syndrome. Patient was initiated on PAP therapy and today is first visit after treatment was started. Patient was able to use PAP equipment every night for the whole night. Patient sleeps better with CPAP, no episodes of cough which was present before treatment. The patient does not have significant problems with the mask, PAP pressure and humidification. [place] sleepiness scale is 3. I checked information from PAP unit. PAP unit pressure 5-12, average 11.2 cm H2O. Usage is 97% and 93% for more then 4 hours, average 6.5 hours per night. Leak is 21.1 l/m, which is in acceptable range. Apnea Hypopnea Index is 5.4, which include 4.2 central events. MEDICATIONS: Please see below During physical exam: GENERAL: A pleasant patient without any distress. VITAL SIGNS: Please see below, weight 126 pounds. HEENT: PERRLA, EOMI.low position of soft palate, Mallapati 4 . NECK: Supple. No JVD. LUNGS: Clear to percussion and to auscultation. Good air exchange. No wheezing or rhonchi. HEART: S1, S2 regular. ABDOMEN: Soft and nontender.[] EXTREMITIES: No clubbing or cyanosis. GAME PROGRAMER: Awake, alert, and oriented x3. No focal deficit. Impressions: 1. Obstructive sleep apnea-hypopnea syndrome. Patient demonstrated great compliance with treatment, benefiting from treatment. 2. Status post stroke in 2018 with very minimal residual left-sided weakness. 3. History of memory problems. 4. Status post thyroid resection, hypothyroidism. 5. Hyperlipidemia. Plan: 1. Continue using PAP equipment every night for the whole night. 2. To change air filter at least 1-2 times per month. 3. PAP unit should stay lower then position of the head. 4. Advised patient to remove all remaining water from humidifier canister daily and make it dry after each usage. Refill canister with fresh distilled water before each usage. 5. Sleep hygiene with regular time in bed for at least 8 hours. 6. Precautions related to driving. No driving if feel any sleepiness. 7. I will maintain prescription for PAP supplies including mask, tube, filters. 8. Follow up visit in 12 months or earlier if patient has any problems. 9. Watching weight. Thank you very much for allowing me to participate in the management of your patient. Clint Parry MD, PhD, FAASM. Diplomat of [place] [employer], Sleep Medicine Board by [place] [employer] Knife Grinder of [facility] [place] Objective - Vital Signs Vital Signs: Vital Signs Temp 98.0 F 05/04/25 14:37 Pulse 82 05/04/25 14:37 Resp 16 05/04/25 14:37 BP 108/69 05/04/25 14:37 Pulse Ox 99 05/04/25 14:37 FiO2 Intake & Output 05/03/25 05/04/25 05/04/25 18:59 06:59 18:59 Weight 57.153 kg Home Medications: Home Medications Medication Instructions Recorded Confirmed Type Levothyroxine Sodium [Synthroid] 75 mg PO DAILY 12/23/15 12/29/24 History Solifenacin Succinate [Vesicare] 10 mg PO DAILY 12/23/15 12/29/24 History Aspirin EC [Ecotrin Low Dose] 81 mg PO BID 12/24/17 01/01/19 History Nitrofurantoin Monohyd/M-Cryst 100 mg PO Q12HR #10 cap 01/01/19 Rx [Macrobid] Pravastatin Sodium [Pravachol] 40 mg PO HS 01/01/19 01/01/19 History Meclizine [Antivert] 25 mg PO DAILY PRN #10 tab 08/31/22 Rx Galantamine [Razadyne] 8 mg PO DAILY 12/29/24 12/29/24 History Memantine HCl 5 mg PO BID 12/29/24 12/29/24 History Rosuvastatin [Crestor] 40 mg PO DAILY 12/29/24 12/29/24 History
== END ==
LOC: 3 N SLEEP 14:31
PROVIDERS: ATTEND Internal Medicine
DX: G47.33 Obstructive sleep apnea (adult) (pediatric) (principal); E03.9 Hypothyroidism, unspecified; E78.5 Hyperlipidemia, unspecified; Z86.59 Personal history of other mental and behavioral disorders; R53.1 Weakness; Z86.73 Personal history of transient ischemic attack (TIA), and cerebral infarction without residual deficits; Z90.09 Acquired absence of other part of head and neck; Z88.5 Allergy status to narcotic agent
CPT/HCPCS: 99212